=== PATIENT | female | born 1960 | race Caucasian/White ===

== ENCOUNTER → 2016-12-22 | Day surgery (SDC) | payer BC ==
[~2016-12-22] VITALS: Ht 170.2 cm; Wt 67.9 kg
[~2016-12-22] MED LIST: CEFUROXIME250 MG PO; CLARITIN D 24HR1 TAB PO; MOBIC15 MG PO; NEXIUM 24HR20 M1 PO; REQUIP0.5 MG PO; ULTRAM50 MG PO; VICODIN 5-3001 EACH PO
--- NOTE | ~2016-12-22 | OR ---
PATIENT'S NAME: CALLY WRAY [facility] AGE: 56 Y [address] ROOM: [place] [address] [place] [facility] [place]: 12/22/2016 OR/Procedure Report DISCHARGE DATE: FAMILY PHYSICIAN: Onur Gayle MD ATTENDING PHYSICIAN: RONI MARES SURGEON: Roni Mares MD REGISTRAR NURSES' REGISTRY: DATE OF PROCEDURE: 12/22/2016 PREOPERATIVE DIAGNOSIS: Right femoral nerve entrapment. POSTOPERATIVE DIAGNOSIS: Right femoral nerve entrapment. PROCEDURE PERFORMED: Exploration and release of right femoral nerve at right groin. CO-SURGEONS: 1. Curtis Santiago MD. 2. Roni Mares MD. ANESTHESIA: General endotracheal anesthesia. ESTIMATED BLOOD LOSS: Less than 5 mL. INDICATION FOR PROCEDURE: Ms. Wray is a 56-year-old female presenting with signs and symptoms of right femoral neuritis. The diagnosis has been confirmed by EMG and nerve conduction studies. She had a transient positive diagnostic response to a cortisone injection. Due to persistent and progressive symptoms, she has elected to proceed with femoral nerve release. We have reviewed risks of infection, neurovascular complications as well as the potential for persistent and progressive symptoms. Please refer to my supplemental clinic note from this morning. The patient understands that Dr. Curtis Santiago will be involved with the approach and wound closure (given his expertise with operating in the region and in the event that expertise in dealing with the femoral artery and vein is required). DESCRIPTION OF PROCEDURE: The patient was positioned supine. General endotracheal anesthesia was administered. The right anterior groin was prepped and draped by Dr. Santiago and Dr. Santiago approached the femoral neurovascular bundle. Please refer to Dr. Santiago's separate dictation. After Dr. Santiago approached the neurovascular bundle, I identified the femoral nerve. Dr. Santiago and I both noticed tight fibrous bands encasing the nerve at the level of the inguinal ligament. There were no hypertrophic lymph nodes or masses of any sort. There was no femoral hernia. A small investing vein PATIENT'S NAME: CALLY WRAY [facility] AGE: 56 Y [address] ROOM: [place] [address] [place] [facility] [place]: 12/22/2016 OR/Procedure Report DISCHARGE DATE: FAMILY PHYSICIAN: Onur Gayle MD ATTENDING PHYSICIAN: RONI MARES was encountered and Dr. Santiago controlled hemorrhage from this vein. This vein crossed the femoral nerve from medial to lateral immediately distal to the fibrous band. I released the encasing fibrous bands both bluntly (with digital dissection) as well as with Metzenbaum scissors while vigilantly protecting the underlying nerve. There were no residual impinging lesions. The femoral nerve was digitally traced beneath the inguinal ligament. Dr. Santiago closed the incision. Please refer to his separately dictated operative note. MD SANDRA ACEVES/kaml /[id number] d: 12/22/16799 t: 12/22/16 1748, OPERATIVE SUMMARY
--- NOTE | ~2016-12-22 | OR ---
PATIENT'S NAME: CALLY WRAY [facility] AGE: 56 Y [address] ROOM: [place], [place] [address] [place] [facility] [place]: 12/22/2016 OR/Procedure Report DISCHARGE DATE: FAMILY PHYSICIAN: Onur Gayle MD ATTENDING PHYSICIAN: RONI MARES SURGEON: Curtis Steward MD PHARMACEUTICAL OFFICER: ADELSO Silva DATE OF PROCEDURE: 12/22/2016 PREOPERATIVE DIAGNOSIS: Femoral nerve entrapment on the right. POSTOPERATIVE DIAGNOSIS: Femoral nerve entrapment on the right. PROCEDURE PERFORMED: For my part, was a right groin dissection with exposure of the femoral canal. Dr. Mares will dictate his portion of the femoral nerve release. CO-SURGEON: Roni Mares MD ANESTHESIA: General. ESTIMATED FLUID LOSS: 10 mL. OPERATIVE FINDINGS AT THE END OF THE CASE: Good release of the nerve from surrounding scar tissue. DESCRIPTION OF PROCEDURE: The patient was brought to the operating room, placed supine on the operating table, placed under general anesthesia, and prepped and draped in a sterile manner. Preoperative time-out was performed. The patient received preoperative antibiotics. We made a standard incision transverse in the groin, dissected down to the fascia, incised the fascia in a longitudinal manner, and dissected down until we came across the femoral artery. We then dissected out the femoral nerve laterally to that. At this point, Dr. Mares took over. He performed his femoral nerve release, which he will dictate separately. After he completed, we achieved hemostasis. We used Bovie cautery. We then reapproximated deep layers with 2-0 and 3-0 Vicryl, and the skin was closed with running 4-0 Monocryl and covered with Dermabond. The patient tolerated the procedure well and was transferred to the recovery room and then home later that day. CURTIS STEWARD MD PATIENT'S NAME: CALLY WRAY [facility] AGE: 56 Y [address] ROOM: [place], [place] [address] [place] [facility] [place]: 12/22/2016 OR/Procedure Report DISCHARGE DATE: FAMILY PHYSICIAN: Onur Gayle MD ATTENDING PHYSICIAN: RONI MARES FKM/modl /[id number] d: 12/22/16 1142 t: 12/23/16 0929, OPERATIVE SUMMARY
== END | disposition disaster alternative care site (69) ==
LOC: GPOC 12-18 09:00 → GSDC 05:19
PROC: 01N Peripheral Nervous System, Release (ICD-10-PCS; principal; 2016-12-22)
DX: G57.21 Lesion of femoral nerve, right lower limb (principal); Z90.710 Acquired absence of both cervix and uterus; Z98.890 Other specified postprocedural states
CPT/HCPCS: J0690; J1100; J2405; J7120